=== PATIENT | male | born 1985 | race Caucasian/White ===

== ENCOUNTER 2018-06-12 08:36 | Emergency (ER) | payer OTHER, SELFPAY ==
[2018-06-12] MEDS ORDERED: predniSONE 20 MG TAB ONE (09:17)
--- NOTE | 2018-06-12 09:34 | ER ---
Nurse's Notes [facility] Name: Leonardo Huff Age: 32 yrs Sex: Male : 1985 Arrival Date: 06/12/2018 Time: 08:38 Bed 13 Private MD: Dashawn Bowden Diagnosis: Radiculopathy Presentation: 06/12 08:56 Presenting complaint: Patient states: i have RIGHT shoulder pain that started Monday, tw2 it hurts into my clavicle and i cant raise my arm unless i move it in front of me first. Transition of care: patient was not received from another setting of care. Onset of symptoms was June 12, 2018. Risk Assessment: Do you want to hurt yourself or someone else? Patient reports no desire to harm self or others. Initial Sepsis Screen: Does the patient meet any 2 criteria? No. Patient's initial sepsis screen is negative. Does the patient have a suspected source of infection? No. Patient's initial sepsis screen is negative. Care prior to arrival: None. 08:56 Method Of Arrival: Ambulatory tw2 08:56 Acuity: MATHEW 4 tw2 Historical: - Allergies: 09:01 No Known Allergies; tw2 - Home Meds: 09:01 lisinopril 20 mg Oral tab 1 tab once daily [Active]; tw2 - PMHx: 09:01 None; tw2 - PSHx: 09:01 None; tw2 - Immunization history:: Adult Immunizations. - Social history:: Smoking status: Patient/guardian denies using tobacco, Patient uses alcohol, occasionally. - Ebola Screening: : Patient denies travel to an Ebola-affected area in the 21 days before illness onset. Screenin:58 Abuse screen: Denies threats or abuse. Nutritional screening: No deficits noted. tw2 Tuberculosis screening: No symptoms or risk factors identified. Fall Risk None identified. Assessment: 08:58 General: Appears in no apparent distress. well groomed, Behavior is calm, cooperative, tw2 appropriate for age. Pain: Complains of pain in anterior aspect of right shoulder and posterior aspect of right shoulder. Neuro: Level of Consciousness is awake, alert, obeys commands, Oriented to person, place, time, situation. Cardiovascular: Denies chest pain, shortness of breath, Patient's skin is warm and dry. Respiratory: Airway is patent Respiratory effort is even, unlabored, Respiratory pattern is regular, symmetrical. GI: No signs and/or symptoms were reported involving the gastrointestinal system. : No signs and/or symptoms were reported regarding the genitourinary system. EENT: No signs and/or symptoms were reported regarding the EENT system. Derm: No signs and/or symptoms reported regarding the dermatologic system. Musculoskeletal: Circulation, motion, and sensation intact. Range of motion: limited in right shoulder. 09:40 Reassessment: Patient appears in no apparent distress at this time. No changes from tw2 previously documented assessment. Patient is alert, oriented x 3, equal unlabored respirations, skin warm/dry/pink. Vital Signs: 08:57 BP 160 / 99; Pulse 87; Resp 17; Temp 99.1(O); Pulse Ox 97% on R/A; Pain 8/10; tw2 09:07 BP 132 / 92; Pulse 75; Resp 17; Pulse Ox 99% on R/A; tw2 ED Course: 08:38 Patient arrived in ED. sb2 08:39 Dashawn Bowden MD is Private Physician. sb2 08:49 Jessica Bahena FNP-C is [facility]. kb 08:49 Gasper Sibley MD is Attending Physician. kb 08:56 Mini Grant, KEN is Primary Nurse. tw2 08:57 Triage completed. tw2 08:57 Arm band placed on. tw2 08:59 Bed in low position. Call light in reach. Pulse ox on. NIBP on. tw2 09:07 Sling applied to right arm. cms intact, pt tolerated well, states "thats comfortable". tw2 09:40 No provider procedures requiring assistance completed. Patient did not have IV access tw2 during this emergency room visit. Administered Medications: 09:11 Drug: predniSONE 40 mg Route: PO; tw2 09:39 Follow up: Response: No adverse reaction tw2 Outcome: 09:34 Discharge ordered by . kb 09:40 Discharged to home ambulatory. tw2 09:40 Condition: stable 09:40 Discharge instructions given to patient, Instructed on discharge instructions, follow up and referral plans. no drinking with medication, no driving heavy equipment, medication usage, Demonstrated understanding of instructions, follow-up care, medications, Prescriptions given X 2. 09:41 Patient left the ED. tw2 Signatures: Jessica Bahena FNP-C DRIVE IN WAITER/WAITRESS-Ckb Mini Grant, RN RN tw2 Zonia Carrizales sb2
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
[2018-06-12 09:53] VITALS: BP 132/92; O2SAT 99
[2018-06-12 09:54] VITALS: TEMP 99.1
== END 2018-06-12 09:41 | disposition home or self-care (01) ==
LOC: ER 08:36
DX: M54.10 Radiculopathy, site unspecified (principal)
CPT/HCPCS: 99284; J7512